=== PATIENT | male | born 1985 | race Caucasian/White ===

== ENCOUNTER → 2016-07-20 | Outpatient (CLI) | payer OTHER ==
[2016-07-20 09:26] LABS: SEMEN TIME OF COLLECTION 820
[2016-07-20 09:27] LABS: COLLECTION PROBLEM NO; DAYS OF ABSTINENCE 2; METHOD OF COLLECTION MASTURBATION; SEMEN COLOR GRAY OR GRAY-WHITE (GRY/GRYWHTE); TRANSPORT PROBLEM NO; TYPE OF SPECIMEN CONTAINER CUP
[2016-07-20 10:08] LABS: SPERM VIABILITY STAIN NOT INDICATED % (>58%)
== END | disposition home or self-care (01) ==
LOC: C.LAB 09:05
PROVIDERS: ATTEND Obstetrics & Gynecology
DX: Z31.41 Encounter for fertility testing (principal)

== ENCOUNTER 2023-04-28 13:37 | Inpatient (IN) ==
--- NOTE | 2023-04-28 13:42 | ED Triage Note ---
Date of Service April 28, 2023 Provider in Triage Author: Pura Gayle History of Present Illness This patient was briefly evaluated while in triage. An abbreviated physical exam was performed. This patient is a 37-year-old Male who presents to the ED for evaluation of fatigue, GROSSMAN x 3 weeks. Had labs performed and demonstrated anemia. EGD and colonoscopy this morning that were reportedly unremarkable. Notes dizziness. Denies CP. Started iron supplement 2 days ago. Physical Exam Constitutional: alert and oriented x3. no acute distress. HEENT: normocephalic, atraumatic. normal conjunctiva.PERRLA. EOM's grossly intact. Respiratory: equal chest rise. normal respiratory effort, no accessory muscle use. Cardiovascular: regular rate and rhythm. MSK: moves all 4 extremities spontaneously Psych:appropriate mood and affect. Initial orders for labs and / or imaging were placed and patient was placed in the waiting area until a bed is available. Please see further documentation for the full ED course.
[2023-04-28 14:04] LABS: Basophils # (auto) 0.03 K/uL (0.00-0.20); Basophils % (auto) 0.5 %; Eosinophils # (auto) 0.02 K/uL (0.00-0.50); Eosinophils % (auto) 0.4 %; Hematocrit (blood only) 29.3 % (42.0-52.0); Hemoglobin 8.7 g/dl (14.0-18.0); Immature Granulocytes # (auto) 0.02 K/uL (0.01-0.20); Immature Granulocytes % (auto) 0.4 %; Lymphocytes # (auto) 2.25 K/uL (1.20-3.40); Lymphocytes % (auto) 41.1 %; Mean Corpuscular Hemoglobin 22.4 pg (25.0-34.0); Mean Corpuscular Hgb Conc 29.7 g/dL (32.0-36.0); Mean Corpuscular Volume 75.3 fL (80.0-100.0); Mean Platelet Volume 9.4 fL (9.4-12.4); Monocytes # (auto) 0.48 K/uL (0.11-0.59); Monocytes % (auto) 8.8 %; Neutrophils # (auto) 2.67 K/uL (1.40-6.50); Neutrophils % (auto) 48.8 %; Platelet Count 338 K/uL (130-400); RDW Coefficient of Variation 14.5 % (11.5-14.5); RDW Standard Deviation 38.3 fL (36.4-46.3); Red Blood Count 3.89 M/uL (4.70-6.10); White Blood Count 5.47 K/ul (4.8-10.8)
[2023-04-28 14:21] LABS: Alanine Aminotransferase 20 U/L (7-52); Albumin Globulin Ratio 1.5 (0.9-2); Albumin Level 4.8 gm/dl (3.4-5.0); Alkaline Phosphatase 57 U/L (34-104); Anion Gap 6 (3-11); Aspartate Aminotransferase 22 U/L (13-39); BUN Creatinine Ratio 11.1 (10-20); Bilirubin,Total 0.6 mg/dl (0.2-1.0); Blood Urea Nitrogen 12 mg/dl (6-23); Calcium 9.6 mg/dl (8.6-10.3); Carbon Dioxide 27 mmol/L (21-32); Chloride 107 mmol/L (98-107); Est GFR (African American) 102.5 ml/min; Est GFR (Non-African American) 88.5 ml/min; Globulin 3.2 gm/dl (2.5-4.0); Glucose 84 mg/dl (70-99(Fasting)); Potassium 4.1 mmol/L (3.5-5.1); Sodium 140 mmol/L (136-145)
--- NOTE | 2023-04-28 16:29 | Emergency Department Note ---
History of Present Illness General Chief complaint: Dizziness Stated complaint: REALLY TIRED DIZZY Time Seen by Provider: 04/28/23 14:49 History of Present Illness This is an otherwise healthy 37-year-old male that presents to the emergency department via private vehicle with complaints of "tired, dizzy, exertional dyspnea, anemia". The patient notes that as of recent he has been feeling tired, easily winded with exertion, lightheaded with standing. He states that he had a full cardiac workup done in the recent past which was overall without significant process. However, he notes that symptoms continued and he had a CBC performed on 04/26/2023 through the [facility] system and revealed a hemoglobin of 7.7. He had an EGD and colonoscopy today which he notes was essentially normal. He notes that he had a blood draw done yesterday which revealed hemoglobin of 8.1. He presents to us today noting continuation of symptoms. Home Medications Medication Instructions Recorded Confirmed Type ferrous sulfate 325 mg (65 mg 325 mg PO DAILY 04/27/23 04/28/23 History iron) tablet (Iron (ferrous sulfate)) Allergies Allergy/AdvReac Type Severity Reaction Status Date / Time No Known Allergies Allergy Verified 04/28/23 09:50 Past Med/Surg History Medical History History of COVID-19 02/2023- no hosp; resolved Heart murmur stress test done 04/19/23 [facility] Anemia reason for upcoming procedure Surgical History Hx of wisdom tooth extraction Family History Brother Hypertension Father FH: thyroid cancer Other No family history of adverse response to anesthesia Social History Smoking Status: Never smoker Tobacco Type: Cigarettes Cigarettes Per Day: smoked occasionally in college/early 20's; Second Hand Exposure: No; Do You Dip or Chew Tobacco: No; Hx Alcohol Use: Yes Alcohol type: beer and hard liquor Hx Substance Use: No Preferred Language: Algerian Communication Ability: Effective Exercise Equipment Specialist Required: No Beliefs That Will Affect Care: None Current Living Situation: Family Current Living Situation Comment: and 3 kids Other Information That Helps Us Care for You: No Feels Safe at Home: Yes Safety Concerns: Feels Safe At This Time Assistive Devices: None Review of Systems A total of 10 systems reviewed and were otherwise negative Physical Exam Vital Signs Vital Signs - 24 hr 04/28/23 13:39 04/28/23 14:45 04/28/23 15:00 Temperature 36.6 C Temperature Source Temporal Artery Scan Pulse Rate 84 Pulse Rate [Left Finger] 70 103 H Pulse Rhythm [Left Finger] Regular Pulse Strength [Left Finger] Normal Respiratory Rate 18 20 18 Respiratory Effort / Characteristics Non-Labored Spontaneous Respiratory Depth Normal Respiratory Pattern Regular Blood Pressure 135/75 Blood Pressure [Right Arm] 128/61 145/97 H Blood Pressure Mean 95 Blood Pressure Mean [Right Arm] 83 113 Blood Pressure Position Sitting Blood Pressure Position [Right Arm] Sitting Pulse Oximetry 100 100 100 Oxygen Delivery Method Room Air Room Air Sepsis Recent Fever Within 48 Hours No Sepsis New/Unexplained Change in Mental Status N/A Sepsis Action Taken by Nursing No Action Required VITAL SIGNS - Vital signs and nursing notes were reviewed. Mildly tachycardic, otherwise stable. GENERAL -37-year-old male appearing his stated age who is in no acute distress. Communicates well with provider and answers questions appropriately. Mildly pale in appearance. SKIN - Without rashes. No meningeal or petechial rash. HEAD - NC/AT. EYES - PERRL with EOMI bilaterally. Sclera anicteric. EARS - No deformities of external structures noted on gross examination bilaterally. NOSE - Midline and without cyanosis. No epistaxis or purulent drainage noted. MOUTH/OROPHARYNX - Without perioral cyanosis. NECK - No nuchal rigidity. LUNGS - Chest wall symmetric without accessory muscle use, intercostals retractions, or central cyanosis. Normal vesicular breath sounds CTA B/L. No wheezes, rales, or rhonchi appreciated. CARDIAC - RRR ABDOMEN - Abdominal contour normal without pulsations or visible masses. BS normoactive all four quadrants. No tenderness, palpable masses, hepatosplenomegaly, or ascites noted. EXTREMITIES - +5/5 strength noted in UE/LE bilaterally. NEUROLOGIC - Cranial nerves II through XII grossly intact. PSYCH - A&O, Pt is very pleasant and interacts well with examiner. Course Administered Medications Discontinued Medications Iron Sucrose 300 mg/ Sodium (Chloride) 265 mls @ 176.667 mls/hr IV NOW ONE Stop: 04/28/23 22:44 Last Admin: 04/28/23 22:11 Dose: 176.7 mls/hr Documented By: MEL Ioversol (Optiray 320 500ml) 88 ml IV ONCE ONE Stop: 04/28/23 20:10 Last Admin: 04/28/23 20:10 Dose: 88 ml Documented By: JANETH Medical Decision Making Laboratory Data 04/28/23 13:50 04/28/23 13:50 Lab Results 04/28/23 04/28/23 Range/Units 13:50 16:46 WBC 5.47 (4.8-10.8) K/ul RBC 3.89 L (4.70-6.10) M/uL Hgb 8.7 L (14.0-18.0) g/dl Hct 29.3 L (42.0-52.0) % MCV 75.3 L (80.0-100.0) fL MCH 22.4 L (25.0-34.0) pg MCHC 29.7 L (32.0-36.0) g/dL RDW Std Deviation 38.3 (36.4-46.3) fL RDW Coeff of Bell 14.5 (11.5-14.5) % Plt Count 338 (130-400) K/uL MPV 9.4 (9.4-12.4) fL Immature Gran % (Auto) 0.4 % Neut % (Auto) 48.8 % Lymph % (Auto) 41.1 % [place] % (Auto) 8.8 % Eos % (Auto) 0.4 % Baso % (Auto) 0.5 % Neut # (Auto) 2.67 (1.40-6.50) K/uL Lymph # (Auto) 2.25 (1.20-3.40) K/uL [place] # (Auto) 0.48 (0.11-0.59) K/uL Eos # (Auto) 0.02 (0.00-0.50) K/uL Baso # (Auto) 0.03 (0.00-0.20) K/uL Immature Gran # (Auto) 0.02 (0.01-0.20) K/uL Sodium 140 (136-145) mmol/L Potassium 4.1 (3.5-5.1) mmol/L Chloride 107 (98-107) mmol/L Carbon Dioxide 27 (21-32) mmol/L Anion Gap 6 (3-11) BUN 12 (6-23) mg/dl Creatinine 1.08 (0.6-1.4) mg/dl Est Cr Clr Drug Dosing Not Reportable Est GFR ( Amer) 102.5 ml/min Est GFR (Non-Af Amer) 88.5 ml/min BUN/Creatinine Ratio 11.1 (10-20) Glucose 84 (70-99(Fasting)) mg/dl Calcium 9.6 (8.6-10.3) mg/dl Total Bilirubin 0.6 (0.2-1.0) mg/dl AST 22 (13-39) U/L ALT 20 (7-52) U/L Alkaline Phosphatase 57 (34-104) U/L Troponin I High Sens 2.9 (0-20) pg/ml Total Protein 8.0 (6.0-8.3) gm/dl Albumin 4.8 (3.4-5.0) gm/dl Globulin 3.2 (2.5-4.0) gm/dl Albumin/Globulin Ratio 1.5 (0.9-2) Blood Type O Positive Antibody Screen NEGATIVE MDM Narrative Patient was seen and evaluated as above in room D01. Review was performed of triage nursing notes and vital signs. Patient did have his [facility] record on his phone and I reviewed his labs at bedside with the patient. After obtaining a thorough history and physical examination the above work up was performed. Patient presents to us today for evaluation of dizziness, lightheadedness, exertional dyspnea and feeling tired over the past few weeks with recent diagnosis of anemia. Presentation most consistent with that of symptomatic anemia. Mildly tachycardic on arrival. No hypotension. He notes EGD and colonoscopy today which were negative. I did review the operative reports from earlier today regarding the EGD and colonoscopy. Options of care were discussed with the patient. IV access was established. Labs were drawn. There is anemia with hemoglobin of 8.7. No emergent metabolic disturbance. EKG was performed and revealed normal sinus rhythm at a rate of 73 bpm. QTc 427. QRS 138. No ST elevation. Right bundle branch block noted. Troponin pending at this time. I discussed case and presentation with the on- call goal umpire/oncologist Dr. Mclaughlin. At this time we will proceed with inpatient management for further evaluation and management. Case discussed with the hospitalist service. Please refer to further documentation regarding his stay. GCS: 15 In the evaluation and treatment of this patient the following differential diagnoses were entertained: Acute blood loss anemia, iron deficiency anemia, malignancy, symptomatic anemia, among others Impression & Plan Symptomatic anemia Discharge Plan Visit Data Chief Complaint: Dizziness Stated Complaint: REALLY TIRED DIZZY ED Provider: Chris Rojo ED Midlevel Provider: Ricardo Brown Discharge Problem: Symptomatic anemia Patient Disposition: Admitted As Inpatient Condition: Good Discharge Instructions Interventions: ED Discharge Assessment Last Done: 04/28/23 21:47
--- NOTE | 2023-04-28 17:06 | History & Physical Report ---
Date of Service April 28, 2023 Assessment & Plan (1) Symptomatic anemia: (2) Iron deficiency anemia: Plan: Patient is a 37-year-old male without significant PMH presented to ER with c/o exertional SOB, fatigue x 3 weeks and newly diagnosed anemia. 04/19/23: stress echo negative for inducible ischemia. 04/24/2023: H/H: 7.7/26, iron: 12, iron binding capacity: 488, Transferrin: 2, Ferritin: 5. (07/23/22: H/H: 14.5/46). Outpatient celiac testing negative 04/28/23: EGD examined esophagus and stomach normal, small hiatal hernia found. Biopsies stomach and duodenum pending 04/28/23: Colonoscopy: Examined portion of ileum normal, nonbleeding internal hemorrhoids. Today in ER initial P: 103 down to 90's. BP: 145/97. H/H: 8.7/29 Will hold on PRBC transfusion at this time IV Venofer Obtain CT Abd/pelvis with contrast CBC, BMP in am Hematology consult. Dr Mclaughlin recommended iron infusion Will need continued outpatient GI follow up DVT Prophylaxis SCDs Full Code Follows with Dr Duval for routine care Pt was seen and care coordinated with Dr Jarertt. See addendum I spent a total of 65 minutes reviewing notes, outpatient records, labs, medication, coordinating, documenting and providing care for this patient excluding time spent in the performance of separately billed services. History of Present Illness Chief Complaint: anemia Primary Care Provider: Kashmir Duval MD Patient is a 37-year-old male without significant PMH presented to ER with c/o exertional SOB, fatigue x 3 weeks and newly diagnosed anemia. History obtained from patient, patient's and outpatient chart review. States 2 months ago had COVID-19 and did not require medical evaluation. [place] like recovered and was back to his baseline. Patient reports history of intermittent bleeding hemorrhoids. He states a couple weeks ago was having some constipation and then did have bright red blood noted in toilet bowl after formed brown BM. He states this was more bleeding than what he had had previously with hemorrhoids. States bleeding was with BMs only. Did not notice any blood mixed in with stool or m zachary. Reports did have several more episodes of hemorrhoidal bleeding with BMs that has since tapered off. States only has heartburn at night after eating spicy foods but this is not a common occurrence. Reports beginning of 04/2023 started noticing was fatigued easier and SOB with exertion. Symptoms worsened prompting PCP evaluation. He had outpatient stress echo on 04/19/23 that was negative for inducible ischemia. Unfortunately patient's symptoms have continued and worsened. Patient reports plays soccer once weekly. He reports he has no longer been able to participate in playing soccer secondary to shortness of breath and being quickly to fatigue. He reports some lightheadedness with standing. On 04/24/2023: H/H: 7.7/26, iron: 12, iron binding capacity: 488, Transferrin: 2, Ferritin: 5. Per outpatient review on had normal H&H on 07/23/22: H/H: 14.5/46. Was seen outpatient by GI and EGD and colonoscopy was recommended. Outpatient celiac testing negative. Today had EGD and colono scopy. CT abd/pelvis was recommended for further workup. Denies fever/chills, diaphoresis, night sweats, N/V/D, VARGAS, syncope, vision changes, neck pain, CP, palpitations, cough, sore throat, rhinorrhea, abdominal pain, paresthesias, weakness, extremity edema, rashes, urinary symptoms. 04/28/23: EGD examined esophagus and stomach normal, small hiatal hernia found. Biopsies stomach and duodenum pending 04/28/23: Colonoscopy: Examined portion of ileum normal, nonbleeding internal hemorrhoids. Allergies Allergy/AdvReac Type Severity Reaction Status Date / Time No Known Allergies Allergy Verified 04/28/23 09:50 Home Medications Medication Instructions Recorded Confirmed Type ferrous sulfate 325 mg (65 mg 325 mg PO DAILY 04/27/23 04/28/23 History iron) tablet (Iron (ferrous sulfate)) Past Med/Surg History Medical History History of COVID-19 02/2023- no hosp; resolved Heart murmur stress test done 04/19/23 [facility] Anemia reason for upcoming procedure Surgical History Hx of wisdom tooth extraction Family History Brother Hypertension Father FH: thyroid cancer Other No family history of adverse response to anesthesia Social History Tobacco Type: Cigarettes Cigarettes Per Day: smoked occasionally in college/early 20's; Second Hand Exposure: No; Do You Dip or Chew Tobacco: No; Hx Alcohol Use: Yes (2-4 drinks 2 times a week) Hx Substance Use: No Preferred Language: Arabic Communication Ability: Effective Milling Machine Set Up Operator Required: No Beliefs That Will Affect Care: None Current Living Situation: Spouse Feels Safe at Home: Yes Assistive Devices: Contacts and Glasses Review of Systems Review of Systems: All systems reviewed & are unremarkable except as noted in HPI & below Physical Exam Physical Exam: General: no acute distress, WDWN Head: normocephalic, atraumatic Eyes: PERRL, EOM's intact, conjunctiva pale, anicteric ENT: normal inspection external ears, nose, mucous membranes moist Neck: supple, trachea midline Lungs: clear, no respiratory distress, no wheezing/rhonchi/rales CV: RRR, no pretibial edema Abd: normal BS, soft, non-tender Ext: no cyanosis, no calf tenderness Neuro: A&O x 3, no focal deficits noted, normal affect Skin: +pale, warm, dry Results & Data Results & Data Vital Signs (Past 12 Hours) Vital Signs Temp Pulse Pulse Resp BP BP Pulse Ox 04/28/23 15:00 103 H 18 145/97 H 100 04/28/23 14:45 70 20 128/61 100 04/28/23 13:39 36.6 C 84 18 135/75 100 O2 Del Method 04/28/23 15:00 04/28/23 14:45 Room Air 04/28/23 13:39 Room Air Laboratory Results Short CBC 04/28/23 Range/Units 13:50 WBC 5.47 (4.8-10.8) K/ul Hgb 8.7 L (14.0-18.0) g/dl Hct 29.3 L (42.0-52.0) % Plt Count 338 (130-400) K/uL BMP 04/28/23 13:50 Sodium 140 Potassium 4.1 Chloride 107 Carbon Dioxide 27 BUN 12 Creatinine 1.08 Glucose 84 Calcium 9.6 Liver Function 01/24/24 Range/Units 13:50 Total Bilirubin 0.6 (0.2-1.0) mg/dl AST 22 (13-39) U/L ALT 20 (7-52) U/L Alkaline Phosphatase 57 (34-104) U/L Albumin 4.8 (3.4-5.0) gm/dl ECG Additional Comments: sinus rhythm, rate 73, RBBB per my interpretation. Compared to EKG from 04/12/23 and 02/14/21 RBBB is chronic Supervising Physician Co-Signing Physician Notes I have seen and examined the patient and have discussed the case with the provider above. I agree with the assessment and plan as stated. 37-year-old male with symptomatic anemia likely secondary to bleeding internal hemorrhoids. Patient endorses heavy bleeding from hemorrhoids in the last 3 weeks and has a referral to colorectal surgery at [facility] to get these definitively treated. Iron studies revealed iron saturation of 2.5%. Reticulocyte count is up a ppropriately. Endoscopy as noted above. Screening for celiac disease negative and no clinical history of malabsorption issues. Discussed case with hematology on-call and with a hemoglobin of 8.7, will try an iron infusion to see if this improves symptoms. Additional workup per hematology. Physical exam otherwise unremarkable. Continue plan as noted above. Would ultimately recommend definitive care for his hemorrhoids and reevaluate anemia after treatment prior to further investigation into cause as it appears this is from GI blood loss secondary to hemorrhoids. Oral iron supplementation recommended at discharge. DO Kolby
[2023-04-28 19:46] LABS: Troponin I High Sensitivity 2.9 pg/ml (0-20)
[2023-04-28] MEDS ORDERED: OPTIRAY 320 500ml IV ONE (20:09)
--- NOTE | 2023-04-28 20:46 | CT Scan Report ---
Exam(s): CT ABDOMEN + PELVIS With Contrast Oral - High Density Amt: gastrografin, IV Amt: 88 ml optiray 320 EXAM: CT Abdomen and Pelvis With Intravenous Contrast CLINICAL HISTORY: Reason for exam: anemia. TECHNIQUE: Axial computed tomography images of the abdomen and pelvis with intravenous contrast. CTDI is 23.15 mGy and DLP is 1090.99 mGy-cm. Automated exposure control was utilized for the study. A dose lowering technique was utilized adhering to the principles of ALARA. CONTRAST: Patient received gastrografin of Oral - High Density and 88 ml optiray 320 of IV contrast COMPARISON: None FINDINGS: Lung bases: Unremarkable. No mass. No consolidation. Mediastinum: Small hiatal hernia. ABDOMEN: Liver:. Tiny hypodensity in the right liver is too small to definitively characterize. No mass. Gallbladder and bile ducts: Unremarkable. No calcified stones. No ductal dilation. Pancreas: Unremarkable. No mass. No ductal dilation. Spleen: Unremarkable. No splenomegaly. Adrenals: Unremarkable. No mass. Kidneys and ureters: Hydronephrosis or obstructing stone. Stomach and bowel: Fluid and gas-filled small bowel loops may be secondary to oral contrast administration versus enteritis. Evaluation of the stomach is limited by underdistention. PELVIS: Appendix: Normal appendix. Bladder: Prominence of the bladder wall is nonspecific. Please correlate with urinalysis if concerned for cystitis. Reproductive: Prostatomegaly. Calcifications of the prostate. ABDOMEN and PELVIS: Intraperitoneal space: Unremarkable. No free air. No significant fluid collection. Bones/joints: No acute fracture. No dislocation. Soft tissues: Unremarkable. Vasculature: Phleboliths in the pelvis. No abdominal aortic aneurysm. Lymph nodes: Unremarkable. No enlarged lymph nodes. IMPRESSION: 1. Prominence of the bladder wall is nonspecific. Please correlate with urinalysis if concerned for cystitis. 2. Fluid and gas-filled small bowel loops may be secondary to oral contrast administration versus enteritis. Electronically signed by: Timo Cortez M.D. 04/28/23 20:45 PM
[2023-04-28] MEDS ORDERED: IRON SUCROSE 300 MG in SODIUM CHLORIDE 0.9% 250 ML IV ONE (21:15)
[2023-04-28] MEDS ORDERED: POLYETHYLENE (MIRALAX) 17 GM PACK PO PRN (21:46)
[2023-04-28] MEDS ORDERED: ACETAMINOPHEN 325 MG TAB PO PRN (21:46)
[2023-04-28] MEDS ORDERED: ONDANSETRON INJ 2 MG/ML 2 ML VIAL IV PRN (21:46)
--- OUTSIDE RECORDS SUMMARY | 2023-04-28 21:46 | External Medical Summary | Summary of Care ---
Author Name Unknown Organization [facility] [address] [address] Phone [phone] Care Team Providers Care Cadmium Plater Name Role Phone Ishaan Jordanvor Demarcus Primary Care Provider Encounter Details Date Type Department Care Team (Late st Contact Info) Description 04/28/2023 Orders Only PATIENT PORTAL DO NOT DELETE THIS DEPT USED BY [place] [id number] Allergies No known active allergiesdocumented as of this encounter (statuses as of 04/28/2023) Medications Medication Sig Dispensed Refills Start Date End Date Status Multivitamin Adult Oral Tablet Chewable Start: 06/12/20 11:23:00 EST 0 06/12/2020 Active Riboflavin 400 MG Oral TabletIndications:Vince quent headaches Take by mouth 1 Tablet before bedtime. 90 Tablet 3 11/28/2021 Active Magnesium Oxide 400 (240 Mg) MG Oral TabletIndications:Vince quent headaches Take by mouth 1 Tablet before bedtime. 90 Tablet 3 11/28/2021 Active Omeprazole 20 MG Oral Tablet Delayed Release Take 1 Tablet by mouth in the morning. 30 Tablet 3 04/27/2023 Active Hospital, Clinic, or Other Facility Administered Medication Ordered Dose Route Frequency Start Date End Date Status Albuterol Sulfate (Proventil) (2.5 MG/3ML) 0.083% inhalation solution 2.5 mgIndications:GROSSMAN (dyspnea on exertion),SOB (shortness of breath) 2.5 mg NEBULIZER ONCE PRN 04/20/2023 04/19/2024 Act abhishek documented as of this encounter (statuses as of 04/28/2023) Active Problems No known active problems documented as of this encounter (statuses as of 04/28/2023) Immunizations Name Administration Dates Next Due Seasonal Influenza, PF, 6 M & above, IM , (FluLaval or Fluzone) 01/10/2021,12/22/2019,01/20/2019, 0 18 TDAP (age 10 and older)(Boostrix) 03/24/2018 documented as of this encounter Social History Tobacco Use Types Packs/Day Years Used Date Smoking Tobacco: Never Smokeless Tobacco: Never Alcohol Use Standard Drinks/Week Comments Yes 0 (1 standard drink = 0.6 oz pur e alcohol) occ PHQ-2 Answer Date Recorded PHQ-2 Score 0 07/07/2018 Sex and Gender Information Value Date Recorded Sex Assigned at Not on file Gender Identity Male 04/11/2023 9:27 PM EST Sexual Orientation Not on file Job Start Date Occupation Industry Not on file Not on file Not on file documented as of this encounter Plan of Treatment Upcoming Encounters Date Type Department Care Team (Late st Contact Info) Description 04/28/2023 10:30 AM EST Procedure Only Endoscopy, [place] [address] [place] [address] Morgan Go, DO [address] [place] [id number] 04/28/2023 11:00 AM EST Procedure Only Endoscopy, [facility] [address] [place] [address] Morgan Go, DO [address] [place] [id number] 04/17/2024 8:00 AM EST Office Visit Family [facility] [address] [place] [address] Noah Jordan, DO [address] [place] [id number] Health Maintenance Due Date Last Done Comments Hepatitis B (1 of 3 - 3-dose series) 1987 COVID-19 Vaccine (#1) 1987 Hepatitis C Screening 06/21/2005 Depression Screening 07/08/2019 07/07/2018 Influenza Vaccine (FLU shot) (#1) 2022 01/10/2021, 12/22/2019, 01/20/2019, Additional history exists Diabetes Screening 04/26/2026 04/26/2023, 07/23/2022 DTaP,Tdap,and Td Vaccines (2 - Td or Tdap) 03/24/2028 03/24/2018 GARDASIL-HPV IMMUNIZATION SERIES Aged Out No longer eligible based on patient's age to complete this topic MENINGOCOCCAL (MENACTRA/MENVEO) Aged Out No longer eligible based on patient's age to complete this topic Pneumococcal Vaccine: Pediatrics (0 to 5 Years) and At-Risk Patients (6 to 64 Years) Aged Out No longer eligible based on patient's age to complete this topic documented as of this encounter Medical Devices Not on filedocumented as of this encounter Care Teams Cadmium Plater Relationship Specialty Start Date End Date Noah Jordan DO [address] [place] [address] PCP - General Family Medicine 04/12/23 documented as of this encounter
--- OUTSIDE RECORDS SUMMARY | 2023-04-28 21:46 | External Medical Summary | Summary of Care ---
Author Name Unknown Organization [facility] Address [address] [facility] [place] [address] Phone [phone] Care Team Providers Care Assembler Flexible Leads Name Role Phone Dontae Jordanr Demarcus Primary Care Provider Reason for Visit * Reason Onset Date Comments Appointment 04/28/2023 Encounter Details Date Type Department Care Team (Late st Contact Info) Description 04/28/2023 Telephone Gastroenterology, [facility] [address] [place] [address] Kenzie Chaudhary CRNP [address] [place] [address] Appointment Allergies No known active allergiesdocumented as of [...] on file documented as of this encounter Miscellaneous Notes * Telephone Encounter - Rhoda Ridley OSA - 04/28/2023 9:51 AM EST Pt needs to be contacted to schedule per Kenzie: Return in about 4 weeks (around 05/25/2023). Pt is currently admitted to [facility] for procedure YEIMI Thornton 04/28/2023 9:52 AM documented in this encounter Plan of Treatment Upcoming Encounters Date Type Department Care Team (Late st Contact Info) Description 04/28/2023 10:30 AM EST Procedure Only Endoscopy, [facility] [address] [place] [address] Morgan Go DO [address] [place] [address] 04/28/2023 11:00 AM EST Procedure Only Endoscopy, [facility] Gonzales [address] [place] [address] Morgan Go DO [address] [place] [address] 04/17/2024 8:00 AM EST Office Visit Family [facility] [address] [place] [address] Noah Jordan DO [address] [place] [address] Health Maintenance Due Date Last Done Comments [...] filedocumented as of this encounter Care Teams Assembler Flexible Leads Relationship Specialty Start Date End Date Noah Jordan DO [address] [place] [address] PCP - General Family Medicine 04/12/23 documented as of this encounter
--- OUTSIDE RECORDS SUMMARY | 2023-04-28 21:46 | External Medical Summary ---
Author Name Unknown Address Unknown Organization K01:[facility] [place] [facility] [address] Laboratory Report Ordering Provider Test Date Status ANGELINA GEORGE 04/27/2023 14:07:31 Final Observation Date Value Abnormality Reference (Units ) Status Tissue transglutaminase IgA Ab [Presence] in Serum by Immunoassay 04/27/2023 14:07:31 Negative Negative Final Tissue transglutaminase IgA Ab [Units/volume] in Serum by Immunoassay 04/27/2023 14:07:31 0.4 <7 (U/mL) Final Performing Location [facility] [place] [facility] [address] [facility] [address]
[2023-04-29 00:18] LABS: Appearance Urine Clear (Clear); Bilirubin Urine Negative (Negative); Blood Urine Negative (Negative); Color Urine Yellow; Glucose Urine UA Negative (Negative); Ketones Urine Negative (Negative); Leukocyte Esterase Urine Negative (Negative); Nitrite Urine Negative (Negative); Protein Urine Negative (Negative); Specific Gravity Urine > 1.045 (1.000-1.030); Urobilinogen Urine Negative (Negative); pH Urine 5.5 (4.5-7.5)
--- OUTSIDE RECORDS SUMMARY | 2023-04-29 03:44 | External Medical Summary | Summary of Care ---
Author Name Unknown Organization [facility] Address [address] [facility] [place] [address] Phone [phone] Care Team Providers Care Glass Fitter Name Role Phone Noah Jordan Primary Care Provider Reason for Visit * Reason Onset Date Comments Test Results 04/28/2023 Encounter Details Date Type Department Care Team (Late st Contact Info) Description 04/28/2023 Telephone Gastroenterology, [facility] [place] [address] [place] [address] Kenzie Chaudhary CRNP [address] [place] [address] Test Results Allergies No known active allergiesdocumented as of [...] encounter Miscellaneous Notes * Telephone Encounter - Ciera Henry LPN - 04/28/2023 12:18 PM EST Pt called and made aware no issues or concerns voiced. * Telephone Encounter - Ciera Henry LPN - 04/28/2023 12:10 PM EST ----- Message from AMANUEL Brito sent at 04/27/2023 3:23 PM EST ----- Called pt AMANUEL Garcia 04/27/2023 3:23 PM documented in this encounter Plan of Treatment Upcoming Encounters Date Type Department Care Team (Late st Contact Info) Description 04/29/2023 9:10 AM EST Laboratory Laboratory [facility] [place] [facility] [address] [place] [address] [place], Lab Scenery [address] [place] [address] 05/06/2023 2:15 PM EST Imaging [facility] [address] [place] [address] 04/17/2024 8:00 AM EST Office Visit Family Practice [facility] [address] [place] [address] Noah Jordan DO [address] [place] [address] Health Maintenance Due Date Last Done Comments [...] filedocumented as of this encounter Care Teams Glass Fitter Relationship Specialty Start Date End Date Noah Jordan DO [address] [place] [address] PCP - General Family Medicine 04/12/23 documented as of this encounter
--- OUTSIDE RECORDS SUMMARY | 2023-04-29 03:44 | External Medical Summary | Summary of Care ---
Author Name Unknown Organization [facility] Address [address] [facility] [place] [address] Phone [phone] Care Team Providers Care Solid Center Winder Name Role Phone Noah Jordan Primary Care Provider Reason for Visit * Reason Onset Date Comments Test Results 04/28/2023 Encounter Details Date Type Department Care Team (Late st Contact Info) Description 04/28/2023 Telephone Gastroenterology, [facility] [address] [place] [address] Kenzie Chaudhary CRNP [address] [place] [address] Test Results Allergies No known active allergiesdocumented [...] State [place] [address] [place] [address] [place], Lab Scenery [address] [place] [address] 05/06/2023 2:15 PM EST Imaging [facility] [address] [place] [address] 04/17/2024 8:00 AM EST Office Visit Family Practice [facility] [address] [place] [address] Noah Jordan DO [address] [place] [address] Health Maintenance Due Date Last Done Comments [...] filedocumented as of this encounter Care Teams Solid Center Winder Relationship Specialty Start Date End Date Noah Jordan DO [address] [place] [address] PCP - General Family Medicine 04/12/23 documented as of this encounter
--- OUTSIDE RECORDS SUMMARY | 2023-04-29 03:45 | External Medical Summary | Summary of Care ---
Author Name Unknown Organization [facility] Address [address] [place] [address] Phone [phone] Care Team Providers Care Educational Director Name Role Phone Julian Noah Durhamhardy Primary Care Provider Reason for Referral * Evaluate & Treat - Unlimited Visits (Within 30 days (routine)) - Pending Review Specialty Diagnoses / Procedures Referred By Contac t Referred To Contact Hematology/Oncology / Hematology Oncology Diagnoses Anemia, unspecified type Kenzie Chaudhary CRNP [address] [place] [address] Referral ID Status Reason Start Date Expiration Date Visits Requested Visits Authorized [id number] Pending Review Specialty Services Required 04/28/[phone] Question Answer Referral Priority Within 30 days (routine) Where should this appointment be scheduled? [facility] Reason for Referral Anemia * Evaluate & Treat - Unlimited Visits (Within 10 days (routine)) - Pending Review Specialty Diagnoses / Procedures Referred By Contac t Referred To Contact General Surgery Diagnoses Rectal bleeding Hemorrhoids, unspecified hemorrhoid type Kenzie Chaudhary CRNP [address] [place] [address] Referral ID Status Reason Start Date Expiration Date Visits Requested Visits Authorized [id number] Pending Review Specialty Services Required 04/28/[phone] Question Answer What condition is the patient being seen for? Colorectal Conditions Do not place this order. Place Colorectal Surgery referral [[id number]]. Acknowledge Referral Priority Within 10 days (routine) Where should this appointment be scheduled? [facility] Comments hemorrhoids, egd/colon 04/28/23 without other source of bleeding identified Encounter Details Date Type Department Care Team (Late st Contact Info) Description 04/28/2023 Telephone Gastroenterology, [facility] [address] [place] [address] Kenzie Chaudhary CRNP [address] [place] [address] Allergies No known active allergiesdocumented as of [...] as of this encounter Miscellaneous Notes * Addendum Note - Kenzie Chaudhary CRNP - 04/28/2023 12:13 PM EST Addended by: KENZIE CHAUDHARY on: 04/28/2023 12:13 PM Modules accepted: Orders * Telephone Encounter - Kenzie Chaudhary CRNP - 04/28/2023 12:05 PM EST I called to update , Amna She notes they are going to go to the ED as he is now having symptomatic anemia, feeling light leaded weakness dizzy She is requesting hematology referral to be placed now She notes he completed the UA yesterday If cT not completed in the ED we will need to get this moved up AMANUEL Sim 04/28/2023 12:12 PM * Telephone Encounter - Kenzie Chaudhary CRNP - 04/28/2023 11:37 AM EST Results of egd/colon reviewed Hemorrhoids but no other source of bleeding He needs the UA and the CTAP I ordered at appt yesterday. Please see if these can be done this week If he has persistent bleeding from hemorrhoids, will refer to gen surg for treatment options If UA and CT are negative, will refer to hematology AMANUEL Sim 04/28/2023 11:37 AM documented in this encounter Plan of Treatment Upcoming Encounters Date Type Department Care Team (Late st Contact Info) Description 05/06/2023 2:15 PM EST Imaging Radiology [facility] 1st [facility] [address] [place] [address] 04/17/2024 8:00 AM EST Office Visit Family Practice [facility] [address] [place] [address] Noah Jordan, [address] [place] [address] Scheduled Referrals Name Type Priority Associated Diagnoses Orde r Schedule SURGERY REFERRAL OP Referral Within 10 da ys (routine) Rectal bleeding Hemorrhoids, unspecified hemorrhoid type Ordered: 04/28/2023 HEMATOLOGY/ONCOLOGY REFERRAL OP Referral Within 30 days (routine) Anemia, unspecified type Ordered: 04/28/2023 Health Maintenance Due Date Last Done Comments [...] Not on filedocumented as of this encounter Visit Diagnoses Diagnosis Rectal bleeding- Primary Hemorrhage of rectum and anus Hemorrhoids, unspecified hemorrhoid type Anemia, unspecified type documented in this encounter Care Teams Educational Director Relationship Specialty Start Date End Date Noah Jordan DO [address] [place] [address] PCP - General Family Medicine 04/12/23 documented as of this encounter
--- OUTSIDE RECORDS SUMMARY | 2023-04-29 03:45 | External Medical Summary | Summary of Care ---
Author Name Unknown Organization [facility] Address [address] [facility] [place] [address] Phone [phone] Care Team Providers Care Director Of Sustainable Design Name Role Phone Julian Noah Durhamhardy Primary Care Provider Reason for Referral * Evaluate & Treat - Unlimited Visits (Within 10 days (routine)) - Pending Review Specialty Diagnoses / Procedures Referred By Soila odonnell Referred To Contact General Surgery Diagnoses Rectal bleeding Hemorrhoids, unspecified hemorrhoid type Kenzie Chaudhary CRNP [address] [place] [address] Referral ID Status Reason Start Date Expiration Date Visits Requested Visits Authorized [id number] Pending Review Specialty Services Required 04/28/[phone] Question Answer What condition is the patient being seen for? Colorectal Conditions Do not place this order. Place Colorectal Surgery referral [[id number]]. Acknowledge Referral Priority Within 10 days (routine) Where should this appointment be scheduled? [facility] Comments hemorrhoids, egd/colon 04/28/23 without other source of bleeding identified Encounter Details Date Type Department Care Team (Late st Contact Info) Description 04/28/2023 Telephone Gastroenterology, [facility] [address] [place] [address] Kenzie Chaudhary CRNP [address] [place] [address] Allergies No known active allergiesdocumented as of [...] encounter Miscellaneous Notes * Telephone Encounter - Kenzie Chaudhary CRNP [...] Description 05/06/2023 2:15 PM EST Imaging Radiology [address] [place] [address] 04/17/2024 8:00 AM EST Office Visit Family Practice [facility] [address] [place] [address] Noah Jordan, [address] [place] [address] Scheduled Referrals Name Type Priority Associated Diagnoses Orde r Schedule SURGERY REFERRAL OP Referral Within 10 da ys (routine) Rectal bleeding Hemorrhoids, unspecified hemorrhoid type Ordered: 04/28/2023 Health Maintenance Due Date [...] rectum and anus Hemorrhoids, unspecified hemorrhoid type documented in this encounter Care Teams Director Of Sustainable Design Relationship Specialty Start Date End Date Noah Jordan DO [address] [place] [address] PCP - General Family Medicine 04/12/23 documented as of this encounter
--- OUTSIDE RECORDS SUMMARY | 2023-04-29 03:45 | External Medical Summary | Summary of Care ---
Author Name Unknown Organization [facility] Address [address] [place] [address] Phone [phone] Care Team Providers Care Senior Insight Manager Name Role Phone Noah Jordan DO Primary Care Provider Reason for Referral * Ancillary Services (Within 3 days (urgent)) - Pending Review Specialty Diagnoses / Procedures Referred By Soila odonnell Referred To Contact Gastroenterology Diagnoses Other iron deficiency anemia Noah Jordan DO [address] [place] [address] Referral ID Status Reason Start Date Expiration Date Visits Requested Visits Authorized [id number] Pending Review Ancillary Services Required 04/26/[phone] Question Answer Referral Priority Within 3 days (urgent) Where should this appointment be scheduled? [facility] Comments Upper Endoscopy ASGE Guidelines Presumed chronic blood loss and for iron deficiency anemia when the clinical situation suggests an upper GI source or when colonoscopy results are negative ADDITIONAL INFORMATION 1. Is the patient on Coumadin? No 2. Is the patient on Pradaxa? No * Ancillary Services (Within 3 days (urgent)) - Pending Review Specialty Diagnoses / Procedures Referred By Soila odonnell Referred To Contact Gastroenterology Diagnoses Other iron deficiency anemia Noah Jordan DO [address] [place] [address] Referral ID Status Reason Start Date Expiration Date Visits Requested Visits Authorized [id number] Pending Review Ancillary Services Required 04/26/[phone] Question Answer Referral Priority Within 3 days (urgent) Where should this appointment be scheduled? [facility] Comments ALERT: Do not order for pediatric patients (18 years or younger). Cancel off screen and order PEDS GASTROENTEROLOGY CONSULT (Type: 1 visit only-Evaluate and Treat) The following Pt. Instructions are available: - Gastro Colonoscopy Prep Instructions [29870] - Gastro Colonoscopy Prep Instructions (Micronesian Version) [48561] Go to the Pt. Instructions section within the Visit Navigator to access. Colonoscopy ASGE Guidelines: Iron deficiency anemia ADDITIONAL INFORMATION 1. Is the patient on Coumadin? No 2. Is the patient on Pradaxa? No Reason for Visit * Reason Onset Date Comments Test Results 04/26/2023 Lab Encounter Details Date Type Department Care Team (Late st Contact Info) Description 04/26/2023 Telephone Family Practice [facility] [address] [place] [address] Noah Jordan DO [address] [place] [address] Test Results (Lab/) Allergies No known active allergiesdocumented as of [...] before bedtime. 90 Tablet 3 11/28/2021 Active Hospital, Clinic, or Other Facility Administered [...] encounter Miscellaneous Notes * Telephone Encounter - Patricia Sandoval LPN - 04/28/2023 9:51 AM EST Left message to return call for lab results. * Telephone Encounter - Noah Jordan DO - 04/27/2023 3:35 PM EST Labs show iron deficiency anemia - could be blood loss Other labs were from GI today as well Advise f/u with GI as scheduled No change to current plan of care * Telephone Encounter - Kenzie Murillo LPN - 04/27/2023 3:26 PM EST Please review 04/26 labs * Telephone Encounter - Alejandro Lewis OSA - 04/26/2023 2:42 PM EST Who is Requesting Test Results: Patient Primary Care Provider : Noah Jordan DO Tests Results Requested : Labs Date of Test : 04/26/23 Location of Test: [facility] Lab Ordering Provider: Noah Jordan DO Callback Number: [phone] Patient has been made aware that the turnaround time for test results are typically as follows: Laboratory results = within 2-3 days ([facility]), 3-5 days (Non-[facility], ie. [facility]) Urine Cultures = within 2-3 days depending on growth within the culture Pathology results (biopsy results/PAP) = 1-2 weeks Radiology results = about 1 week Cologuard results = within 2 weeks from the shipment date COVID testing = about 24 hours documented in this encounter Plan of Treatment Upcoming Encounters Date Type Department Care Team (Late st Contact Info) Description 05/06/2023 2:15 PM EST Imaging Radiology [address] 132 [facility] [place] [address] 04/17/2024 8:00 AM EST Office Visit Family Practice [facility] [address] [facility] [place] [address] Noah Jordan DO [address] [facility] [place] [address] Scheduled Referrals Name Type Priority Associated Diagnoses Orde r Schedule COLONOSCOPY, GI REFERRAL OP Referral Within 3 days (urgent) Other iron deficiency anemia Ordered: 04/26/2023 UPPER ENDOSCOPY GI REFERRAL OP Referral Within 3 days (urgent) Other iron deficiency anemia Ordered: 04/26/2023 Health Maintenance Due Date Last Done Comments [...] Not on filedocumented as of this encounter Results * LD (04/26/2023 11:09 AM EST) LD 191 <=250 U/L 04/26/2023 9:0 7 PM EST [facility] Blood Venous blood specimen / Unknown Venipuncture / Unknown 04/26/2023 11:09 AM EST 04/26/2023 11:09 AM EST Noah Jordan DO LAB BLOOD ORDER TERR[facility] [address] [place] [address] * (ABNORMAL) RETICULOCYTE PANEL (04/26/2023 11:09 AM EST) Reticulocyte Percent 3.28(H) 0.80 - 1.90 % 04/27/2023 12:23 AM EST [facility] Absolute Reticulocyte 113.8(H) 31.3 - 100.1 K/uL 04/27/2023 12:23 AM EST [facility] Immature Reticuloctye Fraction 24.2(H) 2.5 - 20.6 % 04/27/2023 12:23 AM EST [facility] Reticulocyte Hemoglobin 19.3(L) 29.7 - 37.4 pg 04/27/2023 12:23 AM EST [facility] Blood Venous blood specimen / Unknown Venipuncture / Unknown 04/26/2023 11:09 AM EST 04/26/2023 11:09 AM EST Noah Jordan DO LAB BLOOD ORDER TERRY [facility] [address] [place] [address] * (ABNORMAL) IRON SCREEN, INCLUDING TIBC (04/26/2023 11:09 AM EST) Iron 12(L) 45 - 176 ug/dL 04/26/2023 9:07 PM EST [facility] Iron Binding Capacity 488(H) 250 - 425 ug/dL 04/26/2023 9:07 PM EST [facility] Transferrin Saturation Percent 2(L) 15 - 55 % 04/26/2023 9:07 PM EST [facility] Blood Venous blood specimen / Unknown Venipuncture / Unknown 04/26/2023 11:09 AM EST 04/26/2023 11:09 AM EST Noah Jordan DO LAB BLOOD ORDER TERRY Performing Organization Address City/[facility] Co de Phone Number LABORATORY [facility] [address] [place] [address] documented in this encounter Visit Diagnoses Diagnosis Other iron deficiency anemia- Primary documented in this encounter Care Teams Senior Insight Manager Relationship Specialty Start Date End Date Noah Jordan DO [address] [place] [address] [place] [address] PCP - General Family Medicine 04/12/23 documented as of this encounter
--- OUTSIDE RECORDS SUMMARY | 2023-04-29 03:45 | External Medical Summary | Summary of Care ---
Author Name Unknown Organization [facility] [address] [facility] [address] Phone [phone] Care Team Providers Care Controls Project Engineer Name Role Phone Dontae Jordanr Demarcus Primary Care Provider Encounter Details Date Type Department Care Team (Late st Contact Info) Description 04/28/2023 Orders Only Gastroenterology, [facility] [address] [place] [address] Morgan Go DO [address] [place] [address] Allergies No known active allergiesdocumented as of [...] Care Team (Late st Contact Info) Description 04/17/2024 8:00 AM EST Office Visit Family Practice [facility] 132 [facility] [place] [address] Noah Jordan, [address] [facility] [place] [address] Health Maintenance Due Date Last Done Comments [...] Not on filedocumented as of this encounter Procedures Procedure Name Priority Date/Time Associated Diagnosis Comments COLONOSCOPY 04/28/2023 documented in this encounter Results * COLONOSCOPY (04/28/2023) 04/28/2023 Morgan DUFF documented in this encounter Care Teams Controls Project Engineer Relationship Specialty Start Date End Date Noah Jordan DO [address] [place] [address] PCP - General Family Medicine 04/12/23 documented as of this encounter
--- OUTSIDE RECORDS SUMMARY | 2023-04-29 03:45 | External Medical Summary | Summary of Care ---
Author Name Unknown Organization [facility] Address [address] [facility] [address] Phone [phone] Care Team Providers Care Leather Fitter Name Role Phone Dontae Jordanr Demarcus Primary Care Provider Encounter Details Date Type Department Care Team (Late st Contact Info) Description 04/28/2023 Orders Only Gastroenterology, [facility] [address] [place] [address] Morgan Go DO [address] [place] [address] Allergies No known active allergiesdocumented as of [...] 8:00 AM EST Office Visit Family Practice [facility] [address] [facility] [place] [address] Noah Jordan, 132 [facility] [place] [address] Health Maintenance Due Date Last Done Comments [...] Procedure Name Priority Date/Time Associated Diagnosis Comments UPPER GI ENDOSCOPY 04/28/2023 documented in this encounter Results * UPPER GI ENDOSCOPY (04/28/2023) 04/28/2023 Morgan Go DO GASTRO UPPER documented in this encounter Care Teams Leather Fitter Relationship Specialty Start Date End Date Noah Jordan DO [address] [place] [address] PCP - General Family Medicine 04/12/23 documented as of this encounter
[2023-04-29 04:57] LABS: Hematocrit (blood only) 25.6 % (42.0-52.0); Hemoglobin 7.6 g/dl (14.0-18.0); Mean Corpuscular Hemoglobin 22.3 pg (25.0-34.0); Mean Corpuscular Hgb Conc 29.7 g/dL (32.0-36.0); Mean Corpuscular Volume 75.1 fL (80.0-100.0); Mean Platelet Volume 9.7 fL (9.4-12.4); Platelet Count 301 K/uL (130-400); RDW Coefficient of Variation 14.5 % (11.5-14.5); RDW Standard Deviation 39.2 fL (36.4-46.3); Red Blood Count 3.41 M/uL (4.70-6.10); White Blood Count 4.47 K/ul (4.8-10.8)
[2023-04-29 05:06] LABS: BUN Creatinine Ratio 13.3 (10-20); Calcium 8.6 mg/dl (8.6-10.3); Est GFR (African American) 106.1 ml/min; Est GFR (Non-African American) 91.5 ml/min
[2023-04-29] MEDS ORDERED: INFLUENZA VIRUS QUADRIVALENT VACCINE (IIV4) 0.5 ML SYR IM ONE (09:00)
[2023-04-29] MEDS ORDERED: FERROUS SULFATE 325 MG TAB PO SCH (09:00)
[2023-04-29] MEDS: FERROUS SULFATE 325 MG TAB PO SCH ×2 (10:22→22:12)
[2023-04-29] MEDS ORDERED: IRON SUCROSE 400 MG in SODIUM CHLORIDE 0.9% 250 ML IV ONE (11:00)
[2023-04-29 11:02] LABS: Uric Acid 4.1 mg/dl (2.6-7.2)
[2023-04-29 11:16] LABS: Hematocrit (blood only) 29.4 % (42.0-52.0); Hemoglobin 8.4 g/dl (14.0-18.0)
[2023-04-29 11:28] LABS: Folate (Folic Acid),Ser orPlas 17.68 ng/ml (>5.38)
[2023-04-29 11:51] LABS: Reticulocyte % 4.2 % (0.50-2.00); Reticulocytes # 0.15 10^6/uL (0.020-0.100)
[2023-04-29] MEDS: FOLIC ACID 1 MG in SYRINGE 9.8 ML IV SCH (12:07)
[2023-04-29] MEDS: CYANOCOBALAMIN (B-12) 500 MCG TABLET PO SCH (12:07)
--- NOTE | 2023-04-29 16:02 | Hospitalist Progress Note ---
Date of Service April 29, 2023 Assessment & Plan (1) Symptomatic anemia: (2) Iron deficiency anemia: Plan: Patient is a 37-year-old male without significant PMH presented to ER with c/o exertional SOB, fatigue x 3 weeks and newly diagnosed anemia. 04/19/23: stress echo negative for inducible ischemia. 04/24/2023: H/H: 7.7/26, iron: 12, iron binding capacity: 488, Transferrin: 2, Ferritin: 5. (07/23/22: H/H: 14.5/46). Outpatient celiac testing negative 04/28/23: EGD examined esophagus and stomach normal, small hiatal hernia found. Biopsies stomach and duodenum pending 04/28/23: Colonoscopy: Examined portion of ileum normal, nonbleeding internal hemorrhoids. Admitting CTAP w/ no acute finding. MCV 75, low iron stores, elevated reticulocyte count, normal bilirubin and LDH. Fairly normal vitamin B12 and folate levels. At presentation, tachycardic and H/H: 8.7/29 IV venofer 04/28 and 04/29. Started folate and b12 supplement 04/29. Continue iron supplement. Hematology consult, await recommendation. Follow-up with GI as an outpatient. DVT Prophylaxis SCDs Full Code Follows with Dr Duval for routine care Admission and Anticipated Discharge Date Admission Date: April 28, 2023 Subjective Patient was seen and examined at bedside. Patient's significant other at bedside. Patient was lying in bed, on room air, resting comfortably, not in any acute distress. Patient denies any new skin rash or tick bite, reports getting progressively short of breath with activity since April, reports some bleed at the end of bowel movement on and off. Patient reports improvement in his blood in the bowel movement lately. Patient advised to use laxative/stool softener with a goal of 1 loose stool a day. He voiced understanding. Physical Exam Physical Exam: General: no acute distress, WDWN Head: normocephalic, atraumatic Eyes: PERRL, EOM's intact, conjunctiva pale, anicteric ENT: normal inspection external ears, nose, mucous membranes moist Neck: supple, trachea midline Lungs: clear, no respiratory distress, no wheezing/rhonchi/rales CV: RRR, no pretibial edema Abd: normal BS, soft, non-tender Ext: no cyanosis, no calf tenderness Neuro: A&O x 3, no focal deficits noted, normal affect Skin: +pale, warm, dry Results & Data Results & Data Vital Signs (Past 12 Hours) Vital Signs Temp Pulse Pulse Resp BP Pulse Ox O2 Del Method 04/29/23 14:03 77 04/29/23 12:18 36.8 C 89 16 129/78 97 Room Air 04/29/23 07:57 36.6 C 80 16 135/76 97 Room Air 04/29/23 07:00 61
--- NOTE | 2023-04-29 18:55 | Oncology Consultation ---
Date of Consultation April 29, 2023 Assessment & Plan (1) Iron deficiency anemia: It is clear that the patient is severe iron deficient anemia. He is already receiving supplemental iron in the hospital. Once he is discharged we will take over from there and give him further IV iron supplementation. Our other recommendation would be capsule endoscopy if the biopsy from the upper GI endoscopy are unrevealing. Transfuse for hemoglobin less than 7 g/dL Plan Thank you for this interesting hematological consult. Hematology will continue to follow the patient. History of Present Illness Attending Physician: Shorty Varghese MD History of Present Illness The patient is a very pleasant 37-year-old male who presented to the ER with complaints of exertional dyspnea and fatigue for 3 weeks. Previously he was noted to have a hemoglobin of 7.7 and was found to be severely iron deficient. He has undergone EGD and colonoscopy. Biopsies from the stomach and duodenum are pending. When he presented to the ER his blood pressure was low and hemoglobin was also low. Hematology has been consulted to assist in management of this patient with iron deficiency anemia. He is already received IV iron and is feeling better however has occasional fatigue. Hemoglobin at presentation was 8.7 g/dL. He during my interview he was walking out in the hallway with his significant other Allergies Allergy/AdvReac Type Severity Reaction Status Date / Time No Known Allergies Allergy Verified 04/28/23 09:50 Home Medications Medication Instructions Recorded Confirmed Type ferrous sulfate 325 mg (65 mg 325 mg PO DAILY 04/27/23 04/28/23 History iron) tablet (Iron (ferrous sulfate)) Patient History Medical History History of COVID-19 02/2023- no hosp; resolved Heart murmur stress test done 04/19/23 [facility] Anemia reason for upcoming procedure Surgical History Hx of wisdom tooth extraction Family History Brother Hypertension Father FH: thyroid cancer Other No family history of adverse response to anesthesia Social History Smoking Status: Never smoker Tobacco Type: Cigarettes Cigarettes Per Day: smoked occasionally in college/early 20's; Second Hand Exposure: No; Do You Dip or Chew Tobacco: No; Hx Alcohol Use: Yes Alcohol type: beer and hard liquor Hx Substance Use: No Preferred Language: Lao Communication Ability: Effective 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
--- NOTE | 2023-04-29 19:41 | Electrocardiogram Report ---
Test Reason : Blood Pressure : / mmHG Vent. Rate : 073 BPM Atrial Rate : 073 BPM P-R Int : 156 ms QRS Dur : 138 ms QT Int : 388 ms P-R-T Axes : 054 072 026 degrees QTc Int : 427 ms Normal sinus rhythm Right bundle branch block Abnormal ECG No previous ECGs available Confirmed by Guy Canales ([id number]) on 04/29/2023 7:41:12 PM Referred By: Confirmed By:John Canales
[2023-04-30 06:25] LABS: Hematocrit (blood only) 25.8 % (42.0-52.0); Hemoglobin 7.7 g/dl (14.0-18.0); Mean Corpuscular Hemoglobin 22.4 pg (25.0-34.0); Mean Corpuscular Hgb Conc 29.8 g/dL (32.0-36.0); Mean Platelet Volume 9.8 fL (9.4-12.4); Platelet Count 277 K/uL (130-400); RDW Coefficient of Variation 14.7 % (11.5-14.5); RDW Standard Deviation 39.1 fL (36.4-46.3); Red Blood Count 3.44 M/uL (4.70-6.10); White Blood Count 4.64 K/ul (4.8-10.8)
[2023-04-30 06:46] LABS: BUN Creatinine Ratio 11.1 (10-20); Calcium 9.2 mg/dl (8.6-10.3); Creatinine Clr Calc Pharmacy 108.2 ml/min; Est GFR (African American) 113.9 ml/min; Est GFR (Non-African American) 98.3 ml/min
[2023-04-30] MEDS: FOLIC ACID 1 MG in SYRINGE 9.8 ML IV SCH (07:52)
[2023-04-30] MEDS: CYANOCOBALAMIN (B-12) 500 MCG TABLET PO SCH (07:52)
[2023-04-30] MEDS: FERROUS SULFATE 325 MG TAB PO SCH (07:52)
--- NOTE | 2023-04-30 12:37 | Discharge Summary ---
Date of Service April 30, 2023 Admission HPI Per Admitting Provider Patient is a 37-year-old male without significant PMH presented to ER with c/o exertional SOB, fatigue x 3 weeks and newly diagnosed anemia. History obtained from patient, patient's and outpatient chart review. States 2 months ago had COVID-19 and did not require medical evaluation. [place] like recovered and was back to his baseline. Patient reports history of intermittent bleeding hemorrhoids. He states a couple weeks ago was having some constipation and then did have bright red blood noted in toilet bowl after formed brown BM. He states this was more bleeding than what he had had previously with hemorrhoids. States bleeding was with BMs only. Did not notice any blood mixed in with stool or melena. Reports did have several more episodes of hemorrhoidal bleeding with BMs that has since tapered off. States only has heartburn at night after eating spicy foods but this is not a common occurrence. Reports beginning of 04/2023 started noticing was fatigued easier and SOB with exertion. Symptoms worsened prompting PCP evaluation. He had outpatient stress echo on 04/19/23 that was negative for inducible ischemia. Unfortunately patient's symptoms have continued and worsened. Patient reports plays soccer once weekly. He reports he has no longer been able to participate in playing soccer secondary to shortness of breath and being quickly to fatigue. He reports some lightheadedness with standing. On 04/24/2023: H/H: 7.7/26, iron: 12, iron binding capacity: 488, Transferrin: 2, Ferritin: 5. Per outpatient review on had normal H&H on 07/23/22: H/H: 14.5/46. Was seen outpatient by GI and EGD and colonoscopy was recommended. Outpatient celiac testing negative. Today had EGD and colonoscopy. CT abd/pelvis was recommended for further workup. Denies fever/chills, diaphoresis, night sweats, N/V/D, VARGAS, syncope, vision changes, neck pain, CP, palpitations, cough, sore throat, rhinorrhea, abdominal pain, paresthesias, weakness, extremity edema, rashes, urinary symptoms. 04/28/23: EGD examined esophagus and stomach normal, small hiatal hernia found. Biopsies stomach and duodenum pending 04/28/23: Colonoscopy: Examined portion of ileum normal, nonbleeding internal hemorrhoids. Admission Exam Per Admitting Provider General: no acute distress, WDWN Head: normocephalic, atraumatic Eyes: PERRL, EOM's intact, conjunctiva pale, anicteric ENT: normal inspection external ears, nose, mucous membranes moist Neck: supple, trachea midline Lungs: clear, no respiratory distress, no wheezing/rhonchi/rales CV: RRR, no pretibial edema Abd: normal BS, soft, non-tender Ext: no cyanosis, no calf tenderness Neuro: A&O x 3, no focal deficits noted, normal affect Skin: +pale, warm, dry Principal Diagnosis Iron deficiency anemia Symptomatic anemia Discharge Exam General: no acute distress, WDWN Head: normocephalic, atraumatic Eyes: PERRL, EOM's intact, conjunctiva pale, anicteric ENT: normal inspection external ears, nose, mucous membranes moist Neck: supple, trachea midline Lungs: clear, no respiratory distress, no wheezing/rhonchi/rales CV: RRR, no pretibial edema Abd: normal BS, soft, non-tender Ext: no cyanosis, no calf tenderness Neuro: A&O x 3, no focal deficits noted, normal affect Skin: +pale, warm, dry Discharge Data Allergies Allergy/AdvReac Type Severity Reaction Status Date / Time No Known Allergies Allergy Verified 04/28/23 09:50 Consultations 04/28/23 16:43 ED Decision to Admit Stat 04/28/23 21:46 Consult Hematology Routine Ordered Studies 04/28/23 17:40 CT Abd and Pelvis [CT abd pelvis oral and IV con] Urgent Hospital Course (1) Symptomatic anemia: (2) Iron deficiency anemia: Patient is a 37-year-old male without significant PMH presented to ER with c/o exertional SOB, fatigue x 3 weeks and newly diagnosed anemia. 04/19/23: stress echo negative for inducible ischemia. 04/24/2023: H/H: 7.7/26, iron: 12, iron binding capacity: 488, Transferrin: 2, Ferritin: 5. (07/23/22: H/H: 14.5/46). Outpatient celiac testing negative 04/28/23: EGD examined esophagus and stomach normal, small hiatal hernia found. Biopsies stomach and duodenum -->> benign pathology 04/28/23: Colonoscopy: Examined portion of ileum normal, nonbleeding internal hemorrhoids. Admitting CTAP w/ no acute finding. MCV 75, low iron stores, elevated reticulocyte count, normal bilirubin and LDH. Fairly normal vitamin B12 and folate levels. At presentation, tachycardic and H/H: 8.10/31 IV venofer 04/28 and 04/29. Started folate and b12 supplement 04/29. Continue iron supplement. Hematology consult, appreciate recommendation. Follow-up with GI and hematology as an outpatient. Patient is aware. Patient states that he has scheduled appointment for treatment of his internal hemorrhoids. He states that he will follow-up with that. DVT Prophylaxis SCDs Full Code Follows with Dr Duval for routine care He is being discharged with following instruction at the point of discharge: Follow-up with your primary care physician within a week time and likely you will need labs CBC/CMP/magnesium/phosphorus. Follow-up with hematology in 1 to 2 weeks time upon discharge. You will be discharged on iron tablets, take it with large meals of the day. You will be also discharged on folic acid and vitamin B12 supplements. Follow-up with the PCP for long-term monitoring of your iron deficiency anemia. Follow-up with GI as an outpatient for possible evaluation for capsule endoscopy. Maintain your already scheduled follow-up for treatment of your internal hemorrhoids. Take [id number] laxative/stool softener with a goal of 1 loose bowel movements a day. Avoid straining during defecation. Please make sure that you are able to get your medications today by calling your pharmacy before you leave the hospital so that your treatment continuity is not broken. Home Health Attestation I certify that this patient is under my care and that I, or a physicians pharmacy assistant working with me, had a face to-face encounter that meets the home health [id number] encounter requirements with this patient. The encounter with the patient was in whole, or in part, for the following medical condition, which is the primary reason for home health care (list medical condition): I certify that, based on my findings, the following services are medically necessary home health services: My clinical findings support the need for the above services because: Further, I certify that my clinical findings support that this patient is homebound (i.e. absences from home require considerable and taxing effort and are for medical reasons or congregational services or infrequently or of short duration when for other reasons) because: Certification for Home Health Services: Based on the above findings, I certify that this patient is confined to the home and needs intermittent mcc care, physical therapy and/or speech therapy or continues to need occupational therapy. The patient is under my care, and I have initiated the establishment of the plan of care. This patient will be followed by a physician who will periodically review the plan of care. Total Time Total Time Spent Total Time Spent (In Minutes): 45 Discharge Plan Discharge Items Patient Disposition: Home - Self-Care Reason For Visit: ANEMIA Discharge Diagnosis: Iron deficiency anemia Symptomatic anemia Condition on Discharge: Good Activity: Resume your previous activity Non-emergency contact: Primary Care Provider Call non-emergency contact if: you have any medication questions, your symptoms worsen and your temperature is above 101 Follow-up/Referrals: Kashmir Duval MD [Primary Care Provider] - Reyes Mclaughlin MD [Physician] - (The Hematology/Oncology office will contact you for an appointment. Please call the office if you do not receive a call. ) Noah Jordan DO [Outside Practitioners] - (Date & Time 05/04/2023 2:20 PM Provider Noah Jordan DO Department [facility] ) Diet: Regular Addtl Attending Provider Instructions: Follow-up with your primary care physician within a week time and likely you w ill need labs CBC/CMP/magnesium/phosphorus. Follow-up with hematology in 1 to 2 weeks time upon discharge. You will be discharged on iron tablets, take it with large meals of the day. You will be also discharged on folic acid and vitamin B12 supplements. Follow-up with the PCP for long-term monitoring of your iron deficiency anemia. Follow-up with GI as an outpatient for possible evaluation for capsule endoscopy. Maintain your already scheduled follow-up for treatment of your internal hemorrhoids. Take [id number] laxative/stool softener with a goal of 1 loose bowel movements a day. Avoid straining during defecation. Please make sure that you are able to get your medications today by calling your pharmacy before you leave the hospital so that your treatment continuity is not broken. Pending Studies at Discharge: No Stand-Alone Forms: My [facility] [employer], Smoking Cessation Medications and DC Order Prescriptions: New ferrous sulfate 325 mg (65 mg iron) Tablet,Delayed Release (Dr/Ec) 325 mg PO BID Qty: 60 0RF cyanocobalamin (vitamin B-12) 100 mcg tablet 100 mcg PO DAILY Qty: 30 0RF folic acid 1 mg tablet 1 mg PO DAILY Qty: 30 0RF Discontinued ferrous sulfate [Iron (ferrous sulfate)] 325 mg (65 mg iron) Tablet 325 mg PO DAILY Discharge Orders: Discharge Order (Routine); Ordered 04/30/23 Ordered By: Shorty Varghese Admission Data Admit Date/Time: 04/28/23 17:10 Attending Provider: Shorty Varghese Admit Provider: Ngozi Jarrett Primary Care Provider: Kashmir Duval Other Providers: Ngozi Jarrett; Reyes Mclaughlin
== END 2023-04-30 13:34 | disposition home or self-care (01) | DRG 812 ==
LOC: ED 13:37 → EDINP 17:10 → SUATTDRO 17:10 → 2W 21:47